=== PATIENT | male | born 1965 | race Caucasian/White ===

== ENCOUNTER 2021-07-28 22:08 | Emergency (ER) | payer OTHER ==
[~2021-07-28] VITALS: Ht 175.3 cm; Wt 77.1 kg
[2021-07-28] MEDS ORDERED: NAPROSYN500 MG PO (22:58)
[2021-07-28] MEDS ORDERED: PREDNISONE 20 M20 MG PO (22:59)
[2021-07-28] MEDS ORDERED: FLEXERIL PO (22:59)
[2021-07-28 23:27] VITALS: BP 149/93
== END 2021-07-28 23:27 | disposition home or self-care (01) ==
LOC: ER 22:08
DX: M54.50 Low back pain, unspecified (principal); G89.29 Other chronic pain; I10 Essential (primary) hypertension